=== PATIENT | female | born 1950 | race Caucasian/White ===

== ENCOUNTER 2017-11-28 13:23 | Outpatient (CLI) | payer MEDICARE, OTHER ==
--- NOTE | 2017-11-28 14:38 | MRI ---
MRI BRAIN WITHOUT CONTRAST: Date: 11/28/17 HISTORY: Memory loss. 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 No restricted diffusion is seen. No evidence of infarct, hemorrhag e, midline shift, or abnormal extra-axial fluid collections are noted. Ventricular size is appropriat e and the basilar cisterns are patent. There are mucus retention cysts versus polyps in the maxillary sinuses. IMPRESSION: 1. No acute process. 2. Mild chronic small vessel ischemic disease. POS: [facility]
== END 2017-11-28 13:24 | disposition home or self-care (01) ==
LOC: SCSMRI 13:23
PROVIDERS: ATTEND Family Medicine
DX: R41.3 Other amnesia (principal); G93.89 Other specified disorders of brain
CPT/HCPCS: 70551

== ENCOUNTER 2018-04-18 09:10 | Outpatient (CLI) | payer MEDICARE, BC | END 2018-04-18 09:11 | disposition home or self-care (01) | LOC: BICMAMMO 09:10 | PROVIDERS: ATTEND Family Medicine | DX: Z12.31 Encounter for screening mammogram for malignant neoplasm of breast (principal) | CPT/HCPCS: 77063; 77067 ==

== ENCOUNTER 2018-05-03 15:57 | Emergency (ER) | payer MEDICARE, BC ==
[2018-05-03] MEDS ORDERED: Adacel (T-DAP) 0.5 ML VIAL ONE (16:46)
--- NOTE | 2018-05-03 17:13 | RAD ---
RIGHT HAND THREE VIEW 05/03/18 HISTORY: Fall. COMPARISON: None. FINDINGS: Osteotomy and joint replacement of the index finger proximal interphalangeal joint. Cerclage wire and pins through the distal interphalangeal joint of the middle finger. No acute displaced fracture or m alalignment. IMPRESSION: Chronic findings. No acute abnormality. POS: [facility]
--- NOTE | 2018-05-03 17:16 | RAD ---
LEFT TIBIA AND FIBULA TWO VIEW 05/03/18 HISTORY: Trauma. COMPARISON: None. FINDINGS: No fracture or malalignment. Mild anterior soft tissue swelling. IMPRESSION: Soft tissue swelling without acute fracture or malalignment. POS: [facility]
--- NOTE | 2018-05-03 17:18 | CT ---
CT BRAIN WITHOUT CONTRAST 05/03/18 HISTORY: Trauma. Fall. COMPARISON: MRI of the brain 11/28/17. FINDINGS: No acute territorial infarct or hemorrhage. No midline shift or mass effect. Ventricular size and ext ra-axial CSF spaces are normal. Calvarium is intact. The paranasal sinuses and mastoids are clear. IMPRESSION: No acute intracranial abnormality. POS: [facility]
--- NOTE | 2018-05-03 17:46 | CT ---
CT FACE WITHOUT CONTRAST 05/03/18 HISTORY: Injury. Trauma. COMPARISON: None. FINDINGS: Mucous retention cyst right maxillary sinus. The lateral orbital dailey, medial orbital dailey, orbital floors, orbital roofs are intact. The nasal bones are without fracture. Pterygoid plates are intact. There is motion artifact to the mandibular rami angles bilaterally. No d isplaced mandibular fracture is appreciated. Globes are intact. No retrobulbar hematoma. IMPRESSION: No acute fracture of the face. POS: [facility]
== END 2018-05-03 17:20 | disposition home or self-care (01) ==
LOC: SCSER 15:57
DX: S00.83XA Contusion of other part of head, initial encounter (principal); F41.9 Anxiety disorder, unspecified; F32.9 Major depressive disorder, single episode, unspecified; W22.8XXA Striking against or struck by other objects, initial encounter
CPT/HCPCS: 70450; 70486; 90715

== ENCOUNTER 2018-11-21 07:36 | Outpatient (CLI) | payer MEDICARE, BC ==
--- NOTE | 2018-11-21 13:21 | PET ---
PET IMAGING FOR DEMENTIA: HISTORY: Alzheimer's disease. COMPARISON: None. TECHNIQUE: Patient was administered 9.4 mCi of [id number] for dementia imaging. FINDINGS: There is decreased FDG avidity involving bilateral parietal lobes, posterior cingulate gyrus, and lisandra ateral precuneus. Distribution is compatible with Alzheimer's disease. IMPRESSION: Distribution, compatible with Alzheimer's disease. POS: [facility]
== END 2018-11-21 07:37 | disposition home or self-care (01) ==
LOC: PET 07:36
PROVIDERS: ATTEND Nurse Practitioner Acute Care
DX: G30.9 Alzheimer's disease, unspecified (principal)
CPT/HCPCS: 78608; A9552

== ENCOUNTER 2019-02-08 16:49 | Observation (INO) | payer MEDICARE, BC ==
[2019-02-08 17:41] LABS: Band 2 % (5-11); Eosinophils 3 % (0-10); Hemoglobin 14.9 g/dL (12.0-16.0); Lymphocytes 18 % (21-51); MDiff Complete? YES; Mean Corpuscular HGB CONC 34.9 g/dL (32.0-36.0); Mean Corpuscular Hemoglobin 32.7 pg (27.0-31.0); Mean Corpuscular Volume 93.6 fL (78.0-98.0); Mean Platelet Volume 7.2 fL (7.4-10.4); Monocytes 8 % (0-10); Neutrophil 68 % (42-75); Platelet Count 281 thou/uL (130-400); Platelet Morphology Comment Appears Adequate; RBC Distribution Width 12.3 % (11.5-14.5); Reactive Lymphocytes 1 % (0-10); Red Blood Cell (RBC) Count 4.57 mill/uL (4.20-5.40); White Blood Cell (WBC) Count 6.8 thou/uL (4.8-10.8)
[2019-02-08 17:44] LABS: ALT (SGPT) 23 U/L (8-55); AST (SGOT) 20 U/L (5-34); Albumin 3.9 g/dL (3.4-4.8); Alkaline Phosphatase 66 U/L (40-150); Anion Gap 16 mmol/L (10-20); BUN (Urea Nitrogen) 12 mg/dL (9.8-20.1); Bilirubin, Total 0.3 mg/dL (0.2-1.2); Calc. Creatinine Clearance 0 mL/min (70-130); Calcium 9.4 mg/dL (7.8-10.44); Carbon Dioxide 19 mmol/L (23-31); Chloride 109 mmol/L (98-107); Estimated GFR-MDRD 73; Glucose 108 mg/dL (80-115); Potassium 3.9 mmol/L (3.5-5.1); Protein, Total 6.9 g/dL (6.0-8.3); Sodium 140 mmol/L (136-145)
[2019-02-08] MEDS ORDERED: Pantoprazole 40 MG VIAL ONE (18:09)
[2019-02-08 19:46] VITALS: BMI 30.7
[2019-02-08] MEDS ORDERED: Acetaminophen 325 MG TAB PO PRN (20:16)
[2019-02-08] MEDS ORDERED: Ondansetron PF 4 MG/2 ML Vial IVP PRN (20:16)
[2019-02-08] MEDS ORDERED: Ondansetron ODT 4 MG TAB PO PRN (20:16)
[2019-02-08] MEDS ORDERED: Acetaminophen 650 MG Suppository PR PRN (20:16)
[2019-02-08] MEDS ORDERED: Loratadine 10 MG TAB PO PRN (20:20)
[2019-02-08 20:42] LABS: Hemoglobin 15.2 g/dL (12.0-16.0)
[2019-02-08] MEDS ORDERED: Prevnar 13-Val Conj/PF 0.5 ML SYRINGE IM ONE (21:00)
--- NOTE | 2019-02-08 21:31 | HP ---
PRIMARY CARE DOCTOR: Dr. Christian. CODE STATUS: Full code. TIME OF EVALUATION: 8 p.m. CHIEF COMPLAINT FOR THIS PATIENT: "I have blood in the stool." HISTORY OF PRESENT ILLNESS: A 69-year-old female patient, past medical history of dementia, brought in by daughter. The patient came complaining of having blood in her stools. The patient reported 10-15 episodes of watery stool with bright red and some black stools also yesterday. She is on Eliquis for atrial fibrillation, last dose this morning, and also reported some tenesmus associated with defecation. Symptoms were mild to moderate. No clear triggers, no alleviating factors. REVIEW OF SYSTEMS: CONSTITUTIONAL: No fever, chills, or generalized weakness. RESPIRATORY: No cough, sputum production, or shortness of breath. CARDIOVASCULAR: No chest pain or palpitation. GASTROINTESTINAL: No nausea. No vomiting. The patient did have diarrhea with bloody stools and black stools. No abdominal pain. [employer] SALES CONSULTANT: No dizziness, headache, or feeling lightheaded. GENITOURINARY: No burning on urination. EXTREMITIES: No leg swelling. All other systems were reviewed and negative except for the findings mentioned above. PAST MEDICAL HISTORY: The patient has arthritis, left shoulder and neck stenosis. The patient has dementia. PAST SURGICAL HISTORY: Navel hernia, mesh and bladder sling, cataract surgery, surgical history of appendectomy, hysterectomy, right hand surgery. PSYCHIATRIC HISTORY: No history of suicidal ideation, no history of suicidal times. The patient has a history of anxiety. The patient has Alzheimer's. SOCIAL HISTORY: The patient drinks socially twice a month. The patient denies any drug use. The patient has no smoking history. KNOWN ALLERGIES: Iodine, shell fish derivatives. REPORTED MEDICATIONS: 1. Rivastigmine. 2. Lexapro. 3. Eliquis. 4. Donepezil. 5. Abilify. PHYSICAL EXAMINATION: VITAL SIGNS: On presentation, blood pressure 125/80 with heart rate 77, respiratory rate 16, temperature 98.2, pain 5, oxygen saturation was 96% on room air. GENERAL: The patient is alert, oriented, in no acute distress. HEENT: Eyes, normal conjunctivae. Moist oral mucosa. Anicteric. No JVD. RESPIRATORY: Bilateral air entry. No rales. No wheezes. Symmetric expansion. CARDIOVASCULAR: Normal rate, regular rhythm. No murmurs, no gallop, no edema. ABDOMEN: Soft. Normal bowel sounds. MUSCULOSKELETAL: Baseline range of motion and strength. SKIN: Warm, intact. No pallor. No rash. No redness. Capillary refill seems to be intact. NEURO: No evidence of any new focal weakness. Cranial nerves seem to be intact. PSYCH: The patient is in good mood. No anxiety. Optimal judgment. LABORATORY DATA: White count 6.8, hemoglobin 14.2, platelet count 281. Sodium 140, potassium 3.9, chloride 109, carbon dioxide 19, anion gap 16, BUN 12, creatinine 0.78, GFR 73, glucose 108, calcium 9.4, total bilirubin 0.3, AST 20, ALT 23, alkaline phosphatase 66. Serum total protein 6.9, albumin 3.9, globulin 3.0, albumin to globulin ratio is 1.3. ASSESSMENT AND PLAN: The patient will be placed in the hospital with follow medical problems. 1. Gastrointestinal bleeding. The patient was on chronic anticoagulation for atrial fibrillation, has been placed on hold for now. The patient has recent colonoscopy, was negative. The patient will be consulted with GI and we will keep n.p.o. in case GI wants to do an EGD in the morning. No history of NSAIDs. No history of cancer in the family. No history of peptic ulcer. No history of gastroesophageal reflux disease. 2. History of dementia. The patient will need supportive care as inpatient. 3. History of atrial fibrillation, rhythm is controlled. We will reconcile home medications. Monitor on tele. 4. Deep venous thrombosis prophylaxis. We will place the patient on SCDs. Job ID: [id number]
[2019-02-08] MEDS: Donepezil HCl 5 MG TAB PO SCH (22:16)
[2019-02-09 02:38] LABS: Hemoglobin 14.6 g/dL (12.0-16.0)
[2019-02-09 03:01] LABS: Anion Gap 14 mmol/L (10-20); BUN (Urea Nitrogen) 12 mg/dL (9.8-20.1); Calc. Creatinine Clearance 97 mL/min (70-130); Calcium 9.4 mg/dL (7.8-10.44); Carbon Dioxide 21 mmol/L (23-31); Chloride 109 mmol/L (98-107); Estimated GFR-MDRD 74; Glucose 81 mg/dL (80-115); Sodium 140 mmol/L (136-145)
[2019-02-09] MEDS: Aripiprazole 10 MG TAB PO SCH (08:16)
[2019-02-09] MEDS: Rivastigmine 1.5 MG CAP PO SCH ×2 (08:17→16:23)
[2019-02-09] MEDS: Escitalopram Oxalate 20 mg Tablet PO SCH (08:17)
--- NOTE | 2019-02-09 09:51 | PDOC.PN ---
- Subjective Encounter Start Date: 02/09/19 Encounter Start Time: 11:50 Subjective: Patient without further bloody stools. No more diarrhea this AM. No other -: complaints. - Objective Resuscitation Status - Order Detail: 02/08/19 20:16 Resuscitation Status Routine Resuscitation Status: FULL: Full Resuscitation MAR Reviewed: Yes Vital Signs & Weight: Vital Signs (12 hours) Temp Pulse Resp BP Pulse Ox 02/09/19 07:25 98.5 F 75 20 116/59 L 94 L 02/09/19 04:59 98.6 F 92 16 98/67 95 02/08/19 23:28 99.0 F 73 16 104/64 97 Weight Weight 191 lb 1.6 oz I&O: 02/08/19 02/09/19 02/10/19 06:59 06:59 06:59 Intake Total 240 Output Total 800 Balance -560 Result Diagrams: 02/09/19 08:07 02/09/19 02:24 Phys Exam - Physical Examination Constitutional: NAD HEENT: PERRLA, moist MMs no facial droop Respiratory: no wheezing, no rales, no rhonchi Cardiovascular: RRR, no significant murmur Gastrointestinal: soft, positive bowel sounds Musculoskeletal: no edema Neurological: non-focal, moves all 4 limbs Psychiatric: normal affect, A&O x 3 Dx/Plan (1) GI bleed Code(s): K92.2 - GASTROINTESTINAL HEMORRHAGE, UNSPECIFIED Status: Acute Comment: likely due to blood thinners, H/H normal and stable, no evidence of significant GI bleed at this time, continue to monitor, GI consulted (2) Atrial fibrillation Code(s): I48.91 - UNSPECIFIED ATRIAL FIBRILLATION Status: Chronic Qualifiers: Atrial fibrillation type: chronic Qualified Code(s): I48.2 - Chronic atrial fibrillation Comment: holding blood thinners for now (3) Dementia Code(s): F03.90 - UNSPECIFIED DEMENTIA WITHOUT BEHAVIORAL DISTURBANCE Status: Chronic - Plan cont current plan of care, out of bed/ambulate, DVT proph w/SCDs d/c when ok with GI * . - Discharge Day Encounter end time: 12:00
--- NOTE | 2019-02-09 15:15 | CON ---
DATE OF CONSULTATION: 02/09/2019 CHIEF COMPLAINT: Diarrhea and blood in the stool. HISTORY OF PRESENT ILLNESS: Ms. Bragg is a 69-year-old woman, who was admitted with blood in the stool and diarrhea. She has underlying dementia and the history is largely from her and from the chart. She reports that she started with diarrhea 2 or 3 days ago with several liquidy stools per day. Yesterday, the stool had drips of red blood on the toilet paper. She had a liquidy brown stool this morning that was viewed by the nurse. She has had no abdominal pain or fever with this. No nausea or vomiting. No weight loss. PAST MEDICAL HISTORY: 1. Dementia. 2. Arthritis. 3. She has a history of multiple colon polyps in the past and has had multiple colonoscopies over the years by Dr. Quigley. Her most recent colonoscopy was on 11/28/2018 with a small inflammatory polyp removed at that time. 4. Diverticulosis of the left colon. 5. Atrial fibrillation. PAST SURGICAL HISTORY: Umbilical hernia repair, bladder sling, cataract surgery, appendectomy, hysterectomy, hand surgery. HABITS: No tobacco or drugs. Occasional alcohol. ALLERGIES: IODINE. MEDICATIONS: Prior to admission, 1. Rivastigmine. 2. Lexapro. 3. Eliquis. 4. Donepezil. 5. Abilify. REVIEW OF SYSTEMS: Negative x10 systems reviewed, except as stated in the history of present illness. PHYSICAL EXAMINATION: VITAL SIGNS: Temperature 98.5, pulse 75, blood pressure 116/59. GENERAL: She is in no acute distress. She is awake and alert and appropriately responsive. HEENT: Her eyes have no scleral icterus. Oropharynx is clear without lesions. No cervical or supraclavicular lymphadenopathy. LUNGS: Clear to auscultation bilaterally. HEART: Regular rate and rhythm without murmur. ABDOMEN: Soft, nontender, and nondistended. Bowel sounds are present. EXTREMITIES: No lower extremity edema. NEUROLOGIC: Cranial nerves are grossly intact. LABORATORY DATA: White blood cell count is 6.8, hemoglobin is 15.0, platelets are 281. Creatinine 0.77, bilirubin 0.3, AST 20, ALT 23, alkaline phosphatase 66, albumin 3.9. IMPRESSION: 1. Acute diarrhea over the last few days with multiple liquidy brown stools per day with intermittent red blood small volume mixed with them as well. Her hemoglobin remained stable at 15, on Eliquis. Last dose of Eliquis was yesterday morning. Rule out infectious gastroenteritis. 2. Gastrointestinal bleed. She has drips of red blood from the rectum and on the toilet paper, but no large volume hematochezia or melena. This does not seem to be a significant GI bleed. Her hemoglobin is stable at 15. She just had colonoscopy in November 2018 and will not require a repeat colonoscopy at this time. There is no evidence of upper gastrointestinal bleed at this point. 3. History of atrial fibrillation, on Eliquis. RECOMMENDATIONS: 1. Obtain stool studies for C. diff culture, ova and parasite, lactoferrin. 2. Advance her diet. 3. If her diarrhea improves and if she does not show further signs of significant bleeding, she can likely restart her anticoagulation soon. We will recheck results of stool studies and her hemoglobin tomorrow morning. Job ID: [id number]
[2019-02-09] MEDS: Donepezil HCl 5 MG TAB PO SCH (20:52)
[2019-02-10 05:28] LABS: #Basophils 0.1 thou/uL (0.0-0.2); #Eosinphils 0.2 thou/uL (0.0-0.7); #Lymphocytes 1.5 thou/uL (1.20-3.40); #Monocytes 0.7 thou/uL (0.11-0.59); #Neutrophils 4.7 thou/uL (1.40-6.50); %Basophils 0.8 % (0.0-1.0); %Eosinophils 3.3 % (0.0-10.0); %Lymphocytes 21.3 % (21.0-51.0); %Monocytes 9.9 % (0.0-10.0); %Neutrophils 64.8 % (42.0-75.0); Hemoglobin 14.4 g/dL (12.0-16.0); Mean Corpuscular HGB CONC 34.1 g/dL (32.0-36.0); Mean Corpuscular Hemoglobin 33.3 pg (27.0-31.0); Mean Corpuscular Volume 97.7 fL (78.0-98.0); Mean Platelet Volume 6.6 fL (7.4-10.4); Platelet Count 249 thou/uL (130-400); RBC Distribution Width 12.4 % (11.5-14.5); White Blood Cell (WBC) Count 7.2 thou/uL (4.8-10.8)
[2019-02-10 05:54] LABS: Anion Gap 12 mmol/L (10-20); BUN (Urea Nitrogen) 10 mg/dL (9.8-20.1); Calc. Creatinine Clearance 99 mL/min (70-130); Calcium 9.3 mg/dL (7.8-10.44); Carbon Dioxide 21 mmol/L (23-31); Chloride 108 mmol/L (98-107); Estimated GFR-MDRD 80; Glucose 84 mg/dL (80-115); Potassium 3.9 mmol/L (3.5-5.1); Sodium 137 mmol/L (136-145)
--- NOTE | 2019-02-10 08:08 | PDOC.PN ---
- Subjective Encounter Start Date: 02/10/19 Encounter Start Time: 11:20 Subjective: Patient with no more diarrhea, no more bloody bowel movements, no abd -: pain or other symptoms. - Objective Resuscitation Status - Order Detail: 02/08/19 20:16 Resuscitation Status Routine Resuscitation Status: FULL: Full Resuscitation MAR Reviewed: Yes Vital Signs & Weight: Vital Signs (12 hours) Temp Pulse Resp BP Pulse Ox 02/10/19 04:49 98.5 F 72 16 105/62 94 L Weight Weight 186 lb 14.4 oz I&O: 02/09/19 02/10/19 02/11/19 06:59 06:59 06:59 Intake Total 240 1320 Output Total 800 1000 Balance -560 320 Result Diagrams: 02/10/19 05:04 02/10/19 05:04 Phys Exam - Physical Examination Constitutional: NAD HEENT: moist MMs Respiratory: no wheezing, no rales, no rhonchi, clear to auscultation bilateral Cardiovascular: RRR, no significant murmur Gastrointestinal: soft, non-tender, no distention, positive bowel sounds Neurological: non-focal Psychiatric: normal affect Dx/Plan (1) GI bleed Code(s): K92.2 - GASTROINTESTINAL HEMORRHAGE, UNSPECIFIED Status: Acute Comment: likely due to blood thinners, H/H normal and stable, no evidence of significant GI bleed at this time, can resume blood thinners and d/c home (2) Atrial fibrillation Code(s): I48.91 - UNSPECIFIED ATRIAL FIBRILLATION Status: Chronic Qualifiers: Atrial fibrillation type: chronic Qualified Code(s): I48.2 - Chronic atrial fibrillation Comment: resume blood thinners (3) Dementia Code(s): F03.90 - UNSPECIFIED DEMENTIA WITHOUT BEHAVIORAL DISTURBANCE Status: Chronic - Plan cont current plan of care, continue antibiotics d/c home * . - Discharge Day Encounter end time: 11:35
[2019-02-10] MEDS: Escitalopram Oxalate 20 mg Tablet PO SCH (08:45)
[2019-02-10] MEDS: Aripiprazole 10 MG TAB PO SCH (08:45)
[2019-02-10] MEDS: Rivastigmine 1.5 MG CAP PO SCH (08:45)
[2019-02-10] MEDS ORDERED: Apixaban 5 MG TAB PO SCH (09:00)
[2019-02-10 12:26] VITALS: BP 99/64; TEMP 98.9
--- NOTE | 2019-02-10 22:40 | DIS ---
DATE OF ADMISSION: 02/08/2019 DATE OF DISCHARGE: 02/10/2019 PRIMARY CARE PHYSICIAN: Dr. Christian. REASON FOR ADMISSION: Bloody bowel movements. DIAGNOSES AT DISCHARGE: 1. Acute diarrhea, likely viral, resolved. 2. Lower GI bleed, resolved. 3. Atrial fibrillation, on chronic anticoagulation. 4. Dementia. PROCEDURES: None. CONSULTATIONS: Gastroenterology, Dr. Vega. SUMMARY OF HOSPITAL COURSE: This is a 69-year-old white female with a history of dementia, brought in by her daughter for several days of watery brown stools with mixed in blood, also some possible black color to it as well. The patient is on Eliquis for atrial fibrillation. She did have some tenesmus associated with defecation initially. The patient was admitted to the hospital and observed. She had normal hemoglobin and hematocrit, and this did not drop during hospitalization. She had no further diarrhea or blood in her bowel movements during the hospitalization. Her Eliquis was held while she was in the hospital. Dr. Vega was consulted. He recommended stool studies which were negative for Clostridium difficile, negative for lactoferrin, negative for Campylobacter or shiga toxin. No evidence of bacterial infection at this point. The patient was doing well on the day of discharge and completely asymptomatic, is being discharged home. DISCHARGE MANAGEMENT: Discharged home. FOLLOWUP: Follow up with Dr. Christian in the next 2-3 weeks. ACTIVITY: As tolerated. DIET: Healthy heart diet. MEDICATIONS: Resume all home medications. 1. Eliquis 5 mg twice a day. 2. Abilify 2.5 mg daily. 3. Aricept 5 mg at night. 4. Lexapro 20 mg daily. 5. Claritin 10 mg daily. 6. Rivastigmine 3 mg twice a day. Job ID: [id number]
== END 2019-02-10 13:15 | disposition home or self-care (01) ==
LOC: SCSER 16:49 → 2SW 19:15
PROVIDERS: ADMIT Family Medicine; ATTEND Family Medicine
DX: K92.2 Gastrointestinal hemorrhage, unspecified (principal); R19.7 Diarrhea, unspecified; I48.91 Unspecified atrial fibrillation; G30.9 Alzheimer's disease, unspecified; F02.80 Dementia in other diseases classified elsewhere, unspecified severity, without behavioral disturbance, psychotic disturbance, mood disturbance, and anxiety; M19.012 Primary osteoarthritis, left shoulder; F32.9 Major depressive disorder, single episode, unspecified; F41.9 Anxiety disorder, unspecified; Z91.041 Radiographic dye allergy status; Z91.013 Allergy to seafood; Z98.890 Other specified postprocedural states; Z79.01 Long term (current) use of anticoagulants; Z79.899 Other long term (current) drug therapy
CPT/HCPCS: 80048 ×2; 80053; 83630; 85014 ×3; 85018 ×3; 85025 ×2; 86850; 86900; 86901; 87045; 87046; 87177; 87324; 87449 ×2; 87899 ×2; 90670; 96374; 99285; G0009; G0378; 36415; 90471; C9113

== ENCOUNTER 2019-02-21 15:11 | Emergency (ER) | payer MEDICARE, BC ==
[2019-02-21 15:58] LABS: #Basophils 0.1 thou/uL (0.0-0.2); #Eosinphils 0.1 thou/uL (0.0-0.7); #Lymphocytes 1.8 thou/uL (1.20-3.40); #Monocytes 0.5 thou/uL (0.11-0.59); #Neutrophils 5.5 thou/uL (1.40-6.50); %Eosinophils 1.2 % (0.0-10.0); %Monocytes 5.7 % (0.0-10.0); Hemoglobin 16.5 g/dL (12.0-16.0); Mean Corpuscular HGB CONC 32.9 g/dL (32.0-36.0); Mean Corpuscular Hemoglobin 31.8 pg (27.0-31.0); Mean Corpuscular Volume 96.4 fL (78.0-98.0); Platelet Count 305 thou/uL (130-400); RBC Distribution Width 12.3 % (11.5-14.5); Red Blood Cell (RBC) Count 5.19 mill/uL (4.20-5.40)
[2019-02-21 16:06] LABS: INR-International Normal Ratio 1.1; PTT 30.6 SEC (22.9-36.1); Prothrombin Time 13.7 SEC (12.0-14.7)
[2019-02-21 16:22] LABS: ALT (SGPT) 21 U/L (8-55); AST (SGOT) 20 U/L (5-34); Albumin 4.1 g/dL (3.4-4.8); Alkaline Phosphatase 66 U/L (40-150); Anion Gap 17 mmol/L (10-20); BUN (Urea Nitrogen) 19 mg/dL (9.8-20.1); Bilirubin, Total 0.4 mg/dL (0.2-1.2); CK (CPK) 51 U/L (29-168); Calc. Creatinine Clearance 0 mL/min (70-130); Calcium 9.9 mg/dL (7.8-10.44); Carbon Dioxide 19 mmol/L (23-31); Chloride 107 mmol/L (98-107); Estimated GFR-MDRD 65; Globulin 3.2 g/dL (2.4-3.5); Glucose 128 mg/dL (80-115); Potassium 3.8 mmol/L (3.5-5.1); Protein, Total 7.3 g/dL (6.0-8.3); Sodium 139 mmol/L (136-145)
--- NOTE | 2019-02-21 18:18 | CT ---
Exam: Head CT without contrast HISTORY: Pain. Injury. Fall. COMPARISON: 05/03/2018 FINDINGS: Hemorrhage: No intraparenchymal hemorrhage or extra-axial hematoma. Brain parenchyma: Cortical palacios-white matter differentiation is preserved. No mass effect or midline shift. Basilar cisterns are patent.Chronic small vessel ischemic changes white matter are minimal and probably periventricular in distribution. Stable left-sided choroidal fissural cyst versus an enl arged Virchow-Sanjeev space. Ventricular system: Ventricles and sulci are patent and symmetric. Calvarium: Intact. Sinuses and mastoid air cells: Adequate aeration. IMPRESSION: No acute intracranial process.
== END 2019-02-21 18:46 | disposition home or self-care (01) ==
LOC: ERS 15:11
DX: S09.90XA Unspecified injury of head, initial encounter (principal); R42 Dizziness and giddiness; G30.9 Alzheimer's disease, unspecified; F41.9 Anxiety disorder, unspecified; F32.9 Major depressive disorder, single episode, unspecified; Z79.01 Long term (current) use of anticoagulants; Z79.899 Other long term (current) drug therapy; W01.0XXA Fall on same level from slipping, tripping and stumbling without subsequent striking against object, initial encounter
CPT/HCPCS: 70450; 80053; 82550; 84484; 85025; 85610; 85730; 93005; 94760

== ENCOUNTER 2019-02-21 22:41 | Inpatient (IN) | payer MEDICARE, BC ==
[2019-02-22 00:16] LABS: #Basophils 0.1 thou/uL (0.0-0.2); #Eosinphils 0.1 thou/uL (0.0-0.7); #Lymphocytes 1.4 thou/uL (1.20-3.40); #Monocytes 0.6 thou/uL (0.11-0.59); #Neutrophils 7.3 thou/uL (1.40-6.50); %Basophils 1.1 % (0.0-1.0); %Lymphocytes 14.4 % (21.0-51.0); %Monocytes 6.4 % (0.0-10.0); %Neutrophils 77.1 % (42.0-75.0); Hemoglobin 14.7 g/dL (12.0-16.0); Mean Corpuscular HGB CONC 32.5 g/dL (32.0-36.0); Mean Corpuscular Hemoglobin 31.8 pg (27.0-31.0); Mean Corpuscular Volume 97.8 fL (78.0-98.0); Platelet Count 288 thou/uL (130-400); RBC Distribution Width 12.3 % (11.5-14.5); Red Blood Cell (RBC) Count 4.61 mill/uL (4.20-5.40); White Blood Cell (WBC) Count 9.5 thou/uL (4.8-10.8)
[2019-02-22 00:27] LABS: ALT (SGPT) 17 U/L (8-55); AST (SGOT) 13 U/L (5-34); Albumin 3.6 g/dL (3.4-4.8); Alkaline Phosphatase 59 U/L (40-150); Anion Gap 15 mmol/L (10-20); BUN (Urea Nitrogen) 18 mg/dL (9.8-20.1); Bilirubin, Total 0.3 mg/dL (0.2-1.2); Calc. Creatinine Clearance 0 mL/min (70-130); Calcium 8.8 mg/dL (7.8-10.44); Carbon Dioxide 20 mmol/L (23-31); Chloride 108 mmol/L (98-107); Estimated GFR-MDRD 65; Globulin 2.8 g/dL (2.4-3.5); Glucose 129 mg/dL (80-115); Potassium 3.7 mmol/L (3.5-5.1); Protein, Total 6.4 g/dL (6.0-8.3); Sodium 139 mmol/L (136-145)
[2019-02-22 01:26] LABS: Bacteria/HPF 4+ HPF (None Seen); Bilirubin Negative (Negative); Blood, Urine Negative (Negative); Clarity Clear (Clear); Glucose, Urine (Dipstick) Normal (Negative); Leukocyte 250 Leu/uL (Negative); Nitrite 2+ (Negative); Protein, Urine (Dipstick) Negative (Neg-Trace); RBC/HPF 0-3 HPF (0-3); Squamous Epithelial 0-3 HPF (0-3); Urobilinogen Normal mg/dL (Less than 2); WBC/HPF Greater than 50 HPF (0-3)
[2019-02-22] MEDS ORDERED: cefTRIAXone\\ROCEPHIN 2 GM VIAL ONE (02:53)
[2019-02-22 04:34] VITALS: BMI 30.4
[2019-02-22] MEDS ORDERED: Acetaminophen 325 MG TAB PO PRN (04:36)
[2019-02-22] MEDS ORDERED: Ondansetron PF 4 MG/2 ML Vial IVP PRN (04:36)
[2019-02-22] MEDS ORDERED: Ondansetron ODT 4 MG TAB SL PRN (04:36)
[2019-02-22 05:36] LABS: Troponin I Less than 0.010 ng/mL (< 0.028)
[2019-02-22] MEDS ORDERED: Prevnar 13-Val Conj/PF 0.5 ML SYRINGE IM ONE (06:15)
[2019-02-22 08:34] LABS: Troponin I Less than 0.010 ng/mL (< 0.028)
--- NOTE | 2019-02-22 08:38 | CT ---
PRELIMINARY REPORT/[facility]/EMERGENCY AFTER HOURS PROCEDURE: EXAM: CT Head Without Contrast EXAM DATE/TIME: 02/22/2019 1:52 AM CLINICAL HISTORY: 69 years old, female; Alteration of consciousness; Transient alteration of awareness; Patient HX: 69 y/o F presents to ED C/O unresolved and worsening dizziness, described as vertigo. PT was evaluated in ED earlier today S/P fall with C/O dizziness. She was discharged home with meclizine for symptom mediation with all imaging studies, including brain CT, nad. Per family, PT felt better a t time of discharge. After returning home and eating dinner, PT suddenly reported to family that dizziness had returned and was worse than prior. TECHNIQUE: Imaging protocol: Axial computed tomography images of the head without contrast. COMPARISON: No relevant prior studies available. FINDINGS: Brain: Diffuse cerebral age related volume loss and patchy low attenuation in the white matter compatible with chronic small vessel ischemic disease. No midline shift, mass, fluid collection, or evidence of hemorrhage. Left anterior perforating substance enlarged perivascular space. Ventricles: Ventricular enlargement proportional to volume loss. Bones/joints: Unremarkable. No acute fracture. Sinuses: Visualized sinuses are unremarkable. No fluid levels. Mastoid air cells: Visualized mastoid air cells are well aerated. No mastoid effusion. Soft tissues: Unremarkable. IMPRESSION: Age related changes, no acute intracranial abnormality. Thank you for allowing us to participate in the care of your patient. Dictated and Authenticated by: Marco Antonio Sykes MD 02/22/2019 2:35 AM Central Time ([place] & [place]) FINAL REPORT by Dr. Murray EMERGENCY AFTER-HOURS STUDY: CT BRAIN NONCONTRAST: DATE: 02/22/2019 HISTORY: A 69-year-old female with dizziness and vertigo. FINDINGS: There is no evidence of acute intra-axial or extra-axial hemorrhage. There is no midline shift or any other mass effect. There is no extra-axial fluid collection. There is no evidence of obstructive hydrocephalus. Calvarium is intact. There is diffuse brain parenchymal volume loss. There is no inter luis daniel change compared to yesterday's CT, 02/21/2019. Agree with preliminary report by [facility]. IMPRESSION: 1. No acute intracranial findings. 2. Diffuse involutional changes. Transcribed Date/Time: 02/22/2019 9:57 AM
--- NOTE | 2019-02-22 08:51 | RAD ---
XR Chest 1 View Portable History: Chest pain Comparison: Chest radiograph 2013 Findings: Heart size mildly enlarged. The pulmonary arteries are enlarged. No pneumothorax. No effusi on. Mild lung hypoinflation. Degenerative changes of both shoulders. Impression: Cardiomegaly and pulmonary arterial hypertension.
--- NOTE | 2019-02-22 11:58 | ULT ---
US Carotid Doppler STANDARD History: Syncope Comparison: None. Findings: Real-time grayscale, color, and spectral analysis of the extracranial carotid and vertebral arteries was performed. Antegrade flow both vertebral arteries. No elevated peak systolic velocities within the internal ponce tid arteries. Impression: No hemodynamically significant stenosis.
[2019-02-22] MEDS: Rivastigmine 1.5 MG CAP PO SCH (17:27)
--- NOTE | 2019-02-22 18:24 | HP ---
CHIEF COMPLAINT: Dizziness. HISTORY OF PRESENT ILLNESS: The patient is a 69-year-old female with a history of dementia and arthritis and also AFib, who presents to the hospital with complaints of dizziness x1 day. The patient stated that she woke up yesterday morning, felt very unsteady, described the room was spinning, and when she stood up, she tripped over a carpet that was on the floor and fell, but she did not hit her head. The patient denies losing any consciousness. She denies any fevers or chills, any nausea, vomiting or abdominal pain. The patient states that she has been having on and off diarrhea; however, it is not consistent and sometimes is associated with certain types of food. She denies any blood in her urine or in her stool. PAST MEDICAL HISTORY: She has a history of arthritis, left shoulder and neck stenosis, and also history of dementia and AFib. PAST SURGICAL HISTORY: She has had a navel hernia. She has had a mesh with a bladder sling, cataract surgery, surgical hysterectomy, appendectomy, hysterectomy, and right hand surgery. SOCIAL HISTORY: The patient drinks socially twice a month. The patient denies any drug use. The patient has no smoking history. ALLERGIES: SHE IS ALLERGIC TO IODINE AND SHELLFISH. MEDICATIONS: She is on, 1. Eliquis 5 mg b.i.d. 2. Donepezil. 3. Abilify. 4. Lexapro. 5. Rivastigmine. PHYSICAL EXAMINATION: VITAL SIGNS: Are as of the following; temperature of 98.8, heart rate of 67, respirations of 18, 96% on room air, and blood pressure of 128/77. GENERAL: She is awake, alert, and oriented x3. Does not appear in distress. CV: S1 and S2 present. No murmurs, rubs or gallops. ABDOMEN: Soft and nontender. Bowel sounds are present x2. LUNGS: Clear to auscultation. No rhonchi or wheezes noted. HEENT: Pupils are equal and reactive to light. NEUROVASCULAR: No focal deficits noted. SKIN: No cuts, lesions or bruises noted. Also, did orthos on her, which were negative. LABORATORY DATA: WBCs of 9.5, hemoglobin of 14.7, hematocrit of 45.1, and her platelets were 288. Chemistry; sodium 139, potassium of 3.7, BUN of 18, and creatinine 0.87. Her urine did indicate some wbc's and leukocyte esterase. She did have a CT head and chest x-ray. The CT head indicated no acute abnormalities and her chest x-ray indicated cardiomegaly and pulmonary arterial hypertension. ASSESSMENT AND PLAN: The patient is a very pleasant 69-year-old female, who presents to the hospital for dizziness. 1. Presyncope, most likely secondary to vertigo. The patient's symptoms that she describes are very close to vertigo. She stated the room was spinning. However, given her age, I will rule out cardiac issues. I will get an echocardiogram and carotid Dopplers. As I mentioned, her orthostatics were negative. She is not on any recent medications. She is not anemic. I will start her on some meclizine. She does possibly could have a UTI. I will start her on some prophylactic antibiotics and wait for the culture, and the patient states that she has also been having some loose stools. If she does, we will check stool for leukocyte esterase, and I will also check a TSH on her. 2. History of atrial fibrillation, currently controlled. Continue her home medications and her Eliquis. 3. History of dementia. We will continue her home medications. 4. Deep venous thrombosis prophylaxis. The patient is already on Eliquis. Thank you very much. Job ID: [id number]
[2019-02-22] MEDS: Apixaban 5 MG TAB PO SCH (19:55)
[2019-02-23] MEDS ORDERED: cefTRIAXone\\ROCEPHIN 1 GM in Sodium Chloride 0.9% 100 ML IVPB SCH (03:00)
[2019-02-23] MEDS: Escitalopram Oxalate 20 mg Tablet PO SCH (09:18)
[2019-02-23] MEDS: Rivastigmine 1.5 MG CAP PO SCH ×2 (09:19→17:12)
[2019-02-23] MEDS: Aripiprazole 2 MG TAB PO SCH (09:19)
[2019-02-23] MEDS: Apixaban 5 MG TAB PO SCH ×2 (09:19→21:01)
[2019-02-23] MEDS: Cefuroxime Axetil 250 MG TAB PO SCH ×2 (09:20→21:01)
[2019-02-23] MEDS ORDERED: Meclizine HCl 12.5 MG TAB PO SCH ×2 (10:25→10:45)
--- NOTE | 2019-02-23 13:53 | PDOC.PN ---
- Subjective Encounter Start Date: 02/23/19 Encounter Start Time: 10:15 Subjective: pt up in bed does complains of vertigo - Objective Vital Signs & Weight: Vital Signs (12 hours) Temp Pulse Resp BP BP BP Pulse Ox 02/23/19 10:15 105/66 118/74 02/23/19 07:41 97 02/23/19 03:35 98.5 F 76 18 108/71 95 Weight Weight 194 lb 6.4 oz Result Diagrams: 02/21/19 23:59 02/21/19 23:59 Phys Exam - Physical Examination Neck: no nodes, no JVD, supple, full ROM Respiratory: no wheezing, no rales, no rhonchi, wheezing present, clear to auscultation bilateral Cardiovascular: RRR, no significant murmur, no rub, gallop, irregular Gastrointestinal: soft, non-tender, no distention, positive bowel sounds Musculoskeletal: no edema, pulses present, edema present Dx/Plan (1) Pre-syncope Status: Acute (2) Atrial fibrillation Code(s): I48.91 - UNSPECIFIED ATRIAL FIBRILLATION Status: Chronic Qualifiers: Comment: resume blood thinners (3) Dementia Code(s): F03.90 - UNSPECIFIED DEMENTIA WITHOUT BEHAVIORAL DISTURBANCE Status: Chronic - Plan will get an MRI brain, carotid doppler is negative -: echo is pending. will get PT to see pt. Her stool studies are negative. * . Review of Systems - Review of Systems Respiratory: negative: Cough, Dry, Shortness of Breath, Hemoptysis, SOB with Excertion, Pleuritic Pain, Sputum, Wheezing Cardiovascular: negative: chest pain, palpitations, orthopnea, paroxysmal nocturnal dyspnea, edema, light headedness, other - Medications/Allergies Allergies/Adverse Reactions: Allergies Allergy/AdvReac Type Severity Reaction Status Date / Time Iodine and Iodide Containing Allergy Hives Verified 02/08/19 19:58 Produc shellfish derived Allergy Hives Verified 02/08/19 19:58 Medications: Current Medications Acetaminophen (Tylenol) 650 mg PO Q4H PRN PRN Reason: Headache/Fever or Pain Stop: 02/23/19 14:58 Apixaban (Eliquis) 5 mg PO BID [facility] Last Admin: 02/23/19 09:19 Dose: 5 mg Aripiprazole (Abilify) 2.5 mg PO DAILY [facility] Last Admin: 02/23/19 09:19 Dose: 2.5 mg Cefuroxime Axetil (Ceftin) 250 mg PO Q12HR [facility] Last Admin: 02/23/19 09:20 Dose: 250 mg Escitalopram Oxalate (Lexapro) 20 mg PO DAILY [facility] Last Admin: 02/23/19 09:18 Dose: 20 mg Meclizine HCl (Antivert) 12.5 mg PO BID [facility] Ondansetron HCl (Zofran) 4 mg IVP Q6H PRN PRN Reason: Nausea/Vomiting Stop: 02/23/19 14:58 Ondansetron HCl (Zofran Odt) 4 mg SL Q6H PRN PRN Reason: Nausea/Vomiting Stop: 02/23/19 14:58 Rivastigmine (Exelon) 3 mg PO BID[facility] Last Admin: 02/23/19 09:19 Dose: 3 mg Sodium Chloride (Flush - Normal Saline) 10 ml IVF Q12HR [facility] Sodium Chloride (Flush - Normal Saline) 10 ml IVF PRN PRN PRN Reason: Saline Flush
[2019-02-23] MEDS ORDERED: Loperamide HCl 2 MG CAP PO PRN (15:01)
--- NOTE | 2019-02-23 16:13 | MRI ---
EXAM: Brain MRI Without contrast: HISTORY: Dizziness, altered mental status COMPARISON: 11/28/2017 FINDINGS: Multiplanar multisequence MRI examination of the brain is performed. The ventricles are within normal limits of size shape and position. No mass or midline shift. No evidence for intra or extra-axial hemorrhage. No evidence for abnormal restricted diffusion. No evidence for acute infarct. Normal-appearing flow voids are noted. The extracranial soft tissues and calvarial marrow signal appear within normal limits. Visualized sinuses and mastoids are unremarkable. Mild stable chronic white matter ischemic change. IMPRESSION: No significant acute intracranial process. No mass or bleed. No acute infarct.
[2019-02-23] MEDS: Meclizine HCl 12.5 MG TAB PO SCH (21:01)
[2019-02-24] MEDS: Aripiprazole 2 MG TAB PO SCH (08:28)
[2019-02-24] MEDS: Escitalopram Oxalate 20 mg Tablet PO SCH (08:29)
[2019-02-24] MEDS: Cefuroxime Axetil 250 MG TAB PO SCH ×2 (08:29→19:56)
[2019-02-24] MEDS: Apixaban 5 MG TAB PO SCH ×2 (08:29→19:56)
[2019-02-24] MEDS: Meclizine HCl 12.5 MG TAB PO SCH ×2 (08:29→19:56)
[2019-02-24] MEDS: Rivastigmine 1.5 MG CAP PO SCH ×2 (09:09→17:58)
[2019-02-24] MEDS ORDERED: Haloperidol Lactate 5 MG/ML VIAL IM SCH (14:00)
[2019-02-24] MEDS ORDERED: Haloperidol Lactate 5 MG/ML VIAL ONE (14:03)
[2019-02-24] MEDS ORDERED: Ziprasidone 20 MG VIAL IM SCH (15:15)
--- NOTE | 2019-02-24 20:35 | PDOC.PN ---
- Subjective Encounter Start Date: 02/24/19 Encounter Start Time: 09:45 Subjective: pt up in bed no complains, updated pt's daughter - Objective Vital Signs & Weight: Vital Signs (12 hours) Temp Pulse Pulse Pulse Resp Resp Resp 02/24/19 16:00 98.2 F 68 18 02/24/19 13:47 67 68 20 20 02/24/19 12:00 98.1 F 70 18 BP BP BP Pulse Ox Pulse Ox 02/24/19 16:00 110/69 96 02/24/19 13:47 122/70 113/60 94 L 02/24/19 12:00 112/72 95 Weight Weight 193 lb 3.2 oz I&O: 02/23/19 02/24/19 02/25/19 06:59 06:59 06:59 Intake Total 840 Output Total 1250 Balance -410 Result Diagrams: 02/21/19 23:59 02/21/19 23:59 Additional Labs: Accuchecks 02/24/19 13:53 POC Glucose 138 H Phys Exam - Physical Examination Neck: no nodes, no JVD, supple, full ROM Respiratory: no wheezing, no rales, no rhonchi, wheezing present, clear to auscultation bilateral Cardiovascular: RRR, no significant murmur, no rub, gallop, irregular Gastrointestinal: soft, non-tender, no distention, positive bowel sounds Musculoskeletal: no edema, pulses present, edema present Dx/Plan (1) Pre-syncope Status: Acute (2) Atrial fibrillation Code(s): I48.91 - UNSPECIFIED ATRIAL FIBRILLATION Status: Chronic Qualifiers: Comment: resume blood thinners (3) Dementia Code(s): F03.90 - UNSPECIFIED DEMENTIA WITHOUT BEHAVIORAL DISTURBANCE Status: Chronic - Plan mri negative, echo pending- she can get it done outpatient -: she has vertigo, antivert has helped her. she has been getting up -: without any issues. will discharge her today * . Review of Systems - Review of Systems Respiratory: negative: Cough, Dry, Shortness of Breath, Hemoptysis, SOB with Excertion, Pleuritic Pain, Sputum, Wheezing Cardiovascular: negative: chest pain, palpitations, orthopnea, paroxysmal nocturnal dyspnea, edema, light headedness, other Gastrointestinal: negative: Nausea, Vomiting, Abdominal Pain, Diarrhea, Constipation, Melena, Hematochezia, Other - Medications/Allergies Allergies/Adverse Reactions: Allergies Allergy/AdvReac Type Severity Reaction Status Date / Time Iodine and Iodide Containing Allergy Hives Verified 02/08/19 19:58 Produc shellfish derived Allergy Hives Verified 02/08/19 19:58 Medications: Current Medications Apixaban (Eliquis) 5 mg PO BID [facility] Last Admin: 02/24/19 19:56 Dose: 5 mg Aripiprazole (Abilify) 2.5 mg PO DAILY [facility] Last Admin: 02/24/19 08:28 Dose: 2.5 mg Cefuroxime Axetil (Ceftin) 250 mg PO Q12HR [facility] Last Admin: 02/24/19 19:56 Dose: 250 mg Escitalopram Oxalate (Lexapro) 20 mg PO DAILY [facility] Last Admin: 02/24/19 08:29 Dose: 20 mg Loperamide HCl (Imodium) 2 mg PO Q4H PRN PRN Reason: Diarrhea/Loose Stools Last Admin: 02/23/19 15:40 Dose: 2 mg Meclizine HCl (Antivert) 12.5 mg PO BID [facility] Last Admin: 02/24/19 19:56 Dose: 12.5 mg Rivastigmine (Exelon) 3 mg PO BID[facility] Last Admin: 02/24/19 17:58 Dose: 3 mg Sodium Chloride (Flush - Normal Saline) 10 ml IVF Q12HR [facility] Last Admin: 02/24/19 19:56 Dose: 10 ml Sodium Chloride (Flush - Normal Saline) 10 ml IVF PRN PRN PRN Reason: Saline Flush
--- NOTE | 2019-02-24 20:36 | PDOC.EVN ---
Event Note - Event Note Event Note: called by nursing staff, pt was very agitated and yelling. she was given geodon. vitals were normal. lorrie le was called. when i went by to see her she was talking on the phone ordering her food. updated her daughter at bedside. will observe her tonight and discharge her in am.
--- NOTE | 2019-02-25 07:57 | PQF ---
KRISTI POSADA FAUSTINO IBARRA [id number] CLINICAL DOCUMENTATION IMPROVEMENT CLARIFICATION FORM: ICD-10 Updated PLEASE DO AN ADDENDUM TO THE PROGRESS NOTE WITH ANY DOCUMENTATION UPDATES OR ADDITIONS AND CARRY THROUGH TO DC SUMMARY. THANK YOU. DATE: 02/25 ATTN: DR. FAUSTINO THOMSON Please exercise your independent, professional judgment in responding to the clarification form. Clinical indicators are provided on the bottom of this form for your review. Please check appropriate box(s): [ x] UTI [ ] Contaminated urine specimen without UTI [ ] Other diagnosis [ ] Unable to determine In addition, please specify: Present on Admission (POA): [ x ] Yes [ ] No [ ] Unable to determine For continuity of documentation, please document condition throughout progress notes and discharge summary. Thank You. CLINICAL INDICATORS - SIGNS / SYMPTOMS / LABS ER PHYSICIAN DOCUMENTATION 02/22: ACUTE CYSTITIS H&P DOCUMENTATION 02/22 (ALIX): LAB DATA: ...HER URINE DID INDICATE SOME WBC' S & LEUKOCYTE ESTERASE. ASSESSMENT/PLAN: 1) PRESYNCOPE, MOST LIKELY 2/2 VERTIGO. ...SHE POSSIBLY COULD HAVE A UTI. I WILL START HER ON PROPHYLACTIC ANTIBIOTICS & WAIT FOR THE CULTURE. URINALYSIS (02/22): 2+ NITRITE, 250 A LEUKOCYTE ESTERASE, WBC >50 A, 4+ BACTERIA URINE CULTURE (02/22): E COLI RISKS: ABNORMAL URINALYSIS ALZHEIMER DEMENTIA AMS TREATMENT: IV ANTIBIOTIC (ROCEPHIN 02/22 - ) PO ANTIBIOTIC (CEFTIN 02/23 - PRESENT) IVF (1L NS IN ER) THANK YOU! Radha (This form is maintained as a part of the permanent medical record) 2014 [employer]. All Rights Reserved Radha King RN, BSN [email or web address] Office: [phone] [facility]
[2019-02-25 07:58] VITALS: BP 91/51; TEMP 97.9
[2019-02-25] MEDS: Aripiprazole 2 MG TAB PO SCH (09:13)
[2019-02-25] MEDS: Cefuroxime Axetil 250 MG TAB PO SCH (09:14)
[2019-02-25] MEDS: Rivastigmine 1.5 MG CAP PO SCH (09:14)
[2019-02-25] MEDS: Escitalopram Oxalate 20 mg Tablet PO SCH (09:14)
[2019-02-25] MEDS: Apixaban 5 MG TAB PO SCH (09:14)
[2019-02-25] MEDS: Meclizine HCl 12.5 MG TAB PO SCH (09:14)
[2019-02-25 09:27] LABS: #Basophils 0.1 thou/uL (0.0-0.2); #Eosinphils 0.3 thou/uL (0.0-0.7); #Lymphocytes 2.1 thou/uL (1.20-3.40); #Monocytes 0.6 thou/uL (0.11-0.59); #Neutrophils 5.5 thou/uL (1.40-6.50); %Eosinophils 3.3 % (0.0-10.0); %Lymphocytes 24.9 % (21.0-51.0); %Monocytes 6.8 % (0.0-10.0); Mean Corpuscular HGB CONC 32.4 g/dL (32.0-36.0); Mean Corpuscular Hemoglobin 31.7 pg (27.0-31.0); Mean Corpuscular Volume 97.7 fL (78.0-98.0); Platelet Count 282 thou/uL (130-400); RBC Distribution Width 12.4 % (11.5-14.5); Red Blood Cell (RBC) Count 5.04 mill/uL (4.20-5.40); White Blood Cell (WBC) Count 8.6 thou/uL (4.8-10.8)
[2019-02-25 09:49] LABS: Anion Gap 15 mmol/L (10-20); BUN (Urea Nitrogen) 13 mg/dL (9.8-20.1); Calc. Creatinine Clearance 86 mL/min (70-130); Calcium 9.9 mg/dL (7.8-10.44); Carbon Dioxide 22 mmol/L (23-31); Chloride 106 mmol/L (98-107); Estimated GFR-MDRD 66; Glucose 120 mg/dL (80-115); Potassium 4.1 mmol/L (3.5-5.1); Sodium 139 mmol/L (136-145)
--- NOTE | 2019-02-25 23:32 | DIS ---
DATE OF ADMISSION: 02/22/2019 DATE OF DISCHARGE: 02/25/2019 DISCHARGE DIAGNOSES: 1. Presyncope. 2. Atrial fibrillation. 3. Dementia. 4. Urinary tract infection. HOSPITAL COURSE: The patient is a 69-year-old female with a history of dementia who presented to the hospital with presyncope. Please refer to my H and P for further details. The patient described it as the room spinning experience. At this time, she did undergo a carotid Doppler which was negative. She also had a brain MRI, which did not indicate any acute abnormalities. She did undergo an echocardiogram which indicated an EF of 55% to 60% with a structurally normal mitral valve. No evidence of significant mitral regurgitation. Initially, the patient was discharged on 02/24, however she became very anxious and very confused and at this time, she required some medication to calm her down. The patient was observed overnight and she did not have any more symptoms and she was then discharged home. I did update the patient's daughter, Evi who lives with the patient. HOME MEDICATIONS: Home medications will be as of the followin. Xanax 0.25 b.i.d. p.r.n. 2. Ceftin 250 q.12 hours. 3. Antivert 12.5 b.i.d. p.r.n. 4. Florastor 250 mg daily. 5. Rivastigmine 3 mg p.o. b.i.d. 6. Eliquis 5 mg b.i.d. 7. Abilify 2.5 daily. 8. Lexapro 20 mg p.o. daily. PHYSICAL EXAMINATION: VITAL SIGNS: Temperature 97.9, pulse 70, respirations 18, 96% on room air, blood pressure 106/67. GENERAL: She is awake, alert, and oriented x3. Does not appear in distress. CV: S1 and S2 present. No murmurs, rubs, or gallops. ABDOMEN: Soft and nontender. Bowel sounds are present x2. EXTREMITIES: No edema. LABORATORY DATA: Her troponins x3 were negative. FOLLOWUP: She will follow up with her primary care doctor. Job ID: [id number]
--- NOTE | 2019-02-28 11:57 | EKG ---
Test Reason : DIZZINESS Blood Pressure : / mmHG Vent. Rate : 071 BPM Atrial Rate : 071 BPM P-R Int : 168 ms QRS Dur : 080 ms QT Int : 428 ms P-R-T Axes : 049 -53 051 degrees QTc Int : 465 ms Normal sinus rhythm Low voltage QRS Left anterior fascicular block Cannot rule out Inferior infarct (masked by fascicular block?) , age undetermined Abnormal ECG Confirmed by SONALI IRIZARRY D.O. ([id number]), makeup editor KATIA YANG ([id number]) on 02/28/2019 11:57:09 AM Referred By: CECELIA IRIZARRY Confirmed By:SONALI IRIZARRY D.O.
--- NOTE | 2019-02-28 11:57 | EKG ---
Test Reason : Blood Pressure : / mmHG Vent. Rate : 073 BPM Atrial Rate : 073 BPM P-R Int : 182 ms QRS Dur : 080 ms QT Int : 456 ms P-R-T Axes : 010 113 062 degrees QTc Int : 502 ms Normal sinus rhythm Low voltage QRS Left posterior fascicular block Nonspecific T wave abnormality Abnormal ECG Confirmed by SONALI IRIZARRY D.O. ([id number]), editor magazine KATIA YANG ([id number]) on 02/28/2019 11:57:16 AM Referred By: Confirmed By:SONALI IRIZARRY D.O.
== END 2019-02-25 12:09 | disposition home or self-care (01) | DRG 690 ==
LOC: ERS 22:41 → 2NO 02-22 02:58
PROVIDERS: ADMIT Internal Medicine; ATTEND Internal Medicine
DX: N39.0 Urinary tract infection, site not specified (principal); M19.90 Unspecified osteoarthritis, unspecified site; F03.90 Unspecified dementia, unspecified severity, without behavioral disturbance, psychotic disturbance, mood disturbance, and anxiety; I48.2 Chronic atrial fibrillation; Z90.710 Acquired absence of both cervix and uterus; Z90.49 Acquired absence of other specified parts of digestive tract; Z91.013 Allergy to seafood
CPT/HCPCS: 36415; 36416; 51701; 70450; 70551; 71045; 80048; 80053; 81003; 81015; 82550; 83630; 84443; 84484; 85025; 85610; 85730; 87077; 87086; 87186; 87324; 87449; 93005; 93306; 93880; 94760; 96361; 96365; A4353; J0696; J1630; J3486; J3490; J8597

== ENCOUNTER 2019-02-25 21:40 | Emergency (ER) | payer MEDICARE, BC ==
[2019-02-25 22:26] LABS: #Basophils 0.1 thou/uL (0.0-0.2); #Eosinphils 0.2 thou/uL (0.0-0.7); #Monocytes 0.7 thou/uL (0.11-0.59); #Neutrophils 4.6 thou/uL (1.40-6.50); %Basophils 0.8 % (0.0-1.0); %Eosinophils 2.8 % (0.0-10.0); %Lymphocytes 26.7 % (21.0-51.0); %Monocytes 9.1 % (0.0-10.0); %Neutrophils 60.6 % (42.0-75.0); Hemoglobin 15.5 g/dL (12.0-16.0); Mean Corpuscular HGB CONC 32.8 g/dL (32.0-36.0); Mean Corpuscular Hemoglobin 31.9 pg (27.0-31.0); Mean Corpuscular Volume 97.4 fL (78.0-98.0); Mean Platelet Volume 6.8 fL (7.4-10.4); Platelet Count 282 thou/uL (130-400); RBC Distribution Width 12.3 % (11.5-14.5); Red Blood Cell (RBC) Count 4.85 mill/uL (4.20-5.40); White Blood Cell (WBC) Count 7.6 thou/uL (4.8-10.8)
[2019-02-25 22:39] LABS: Bacteria/HPF 1+ HPF (None Seen); Bilirubin Negative (Negative); Blood, Urine Trace (Negative); Clarity Clear (Clear); Glucose, Urine (Dipstick) Normal (Negative); Leukocyte Negative Leu/uL (Negative); Nitrite Negative (Negative); Protein, Urine (Dipstick) Negative (Neg-Trace); RBC/HPF 0-3 HPF (0-3); Squamous Epithelial 0-3 HPF (0-3); Urobilinogen Normal mg/dL (Less than 2); WBC/HPF None Seen HPF (0-3)
[2019-02-25 22:48] LABS: ALT (SGPT) 21 U/L (8-55); AST (SGOT) 18 U/L (5-34); Albumin 3.9 g/dL (3.4-4.8); Alkaline Phosphatase 62 U/L (40-150); Anion Gap 15 mmol/L (10-20); BUN (Urea Nitrogen) 19 mg/dL (9.8-20.1); Bilirubin, Total 0.3 mg/dL (0.2-1.2); Calc. Creatinine Clearance 0 mL/min (70-130); Calcium 9.3 mg/dL (7.8-10.44); Carbon Dioxide 20 mmol/L (23-31); Chloride 109 mmol/L (98-107); Estimated GFR-MDRD 65; Globulin 2.9 g/dL (2.4-3.5); Glucose 101 mg/dL (80-115); Lipase 60 U/L (8-78); Potassium 4.1 mmol/L (3.5-5.1); Protein, Total 6.8 g/dL (6.0-8.3); Sodium 140 mmol/L (136-145)
--- NOTE | 2019-02-28 13:30 | EKG ---
Test Reason : Blood Pressure : / mmHG Vent. Rate : 075 BPM Atrial Rate : 077 BPM P-R Int : 000 ms QRS Dur : 074 ms QT Int : 396 ms P-R-T Axes : 000 -48 011 degrees QTc Int : 442 ms Undetermined rhythm Left axis deviation Low voltage QRS Inferior infarct , age undetermined Possible Anterolateral infarct , age undetermined Abnormal ECG Confirmed by CEDRICK TAVARES DO ([id number]), editorial writer KATIA YANG ([id number]) on 02/28/2019 1:30:13 PM Referred By: Confirmed By:CEDRICK TAVARES DO
== END 2019-02-25 23:36 | disposition home or self-care (01) ==
LOC: ERS 21:40
DX: R41.82 Altered mental status, unspecified (principal); G30.9 Alzheimer's disease, unspecified; M19.90 Unspecified osteoarthritis, unspecified site; Z79.01 Long term (current) use of anticoagulants; Z79.899 Other long term (current) drug therapy
CPT/HCPCS: 81003; 81015; 83690; 93005

== ENCOUNTER 2019-03-01 12:33 | Emergency (ER) | payer MEDICARE, BC ==
[2019-03-01 13:17] LABS: Bilirubin Negative (Negative); Blood, Urine Negative (Negative); Clarity Clear (Clear); Glucose, Urine (Dipstick) Negative (Negative); Leukocyte Negative (Negative); Nitrite Negative (Negative); Protein, Urine (Dipstick) Negative (Neg-Trace); Urobilinogen 0.2 mg/dL (Less than 2)
--- NOTE | 2019-03-01 13:40 | CT ---
CT Brain WO Con: 03/01/2019 12:57 PM CLINICAL HISTORY: Syncope and dizziness. Patient had a fall today. IMAGING TECHNIQUE: Multiple CT images were obtained of the brain without IV contrast. COMPARISON: CT the brain dated February 22, 2019 FINDINGS: Infarct: No acute infarct evident. Hemorrhage: None.. Hydrocephalus: None.. Basal cisterns: Normal.. Cerebral parenchyma: Normal.. Midline shift: None.. Cerebellum: Normal. Brainstem: Normal. OTHER: Calvarium: Intact.. Visualized Paranasal sinuses: Clear.. Extracranial soft tissues:Normal. IMPRESSION: No acute intracranial abnormality.
--- NOTE | 2019-03-01 13:41 | RAD ---
Portable chest: HISTORY: Syncope COMPARISON: none FINDINGS: Lung shah are clear. Heart and mediastinum appear unremarkable. Vascularity is normal. Visualized osseous structures unremarkable. IMPRESSION: No acute finding
[2019-03-01] MEDS ORDERED: Acetaminophen 500 MG TAB ONE (13:56)
[2019-03-01 14:12] LABS: #Basophils 0.1 thou/uL (0.0-0.2); #Eosinphils 0.3 thou/uL (0.0-0.7); #Lymphocytes 1.9 thou/uL (1.20-3.40); #Monocytes 0.7 thou/uL (0.11-0.59); #Neutrophils 4.6 thou/uL (1.40-6.50); %Basophils 1.5 % (0.0-1.0); %Eosinophils 3.3 % (0.0-10.0); %Lymphocytes 25.1 % (21.0-51.0); %Monocytes 8.8 % (0.0-10.0); %Neutrophils 61.4 % (42.0-75.0); Hemoglobin 14.6 g/dL (12.0-16.0); Mean Corpuscular HGB CONC 33.4 g/dL (32.0-36.0); Mean Corpuscular Hemoglobin 32.3 pg (27.0-31.0); Mean Corpuscular Volume 96.7 fL (78.0-98.0); Platelet Count 277 thou/uL (130-400); RBC Distribution Width 12.3 % (11.5-14.5); Red Blood Cell (RBC) Count 4.53 mill/uL (4.20-5.40); White Blood Cell (WBC) Count 7.6 thou/uL (4.8-10.8)
[2019-03-01 14:30] LABS: ALT (SGPT) 19 U/L (8-55); AST (SGOT) 16 U/L (5-34); Acetaminophen Less than 6.0 mcg/mL (10.0-30.0); Albumin 3.8 g/dL (3.4-4.8); Alcohol Less than 10 mg/dL (Less than 10); Alkaline Phosphatase 56 U/L (40-150); Anion Gap 15 mmol/L (10-20); BUN (Urea Nitrogen) 10 mg/dL (9.8-20.1); Bilirubin, Total 0.2 mg/dL (0.2-1.2); CK (CPK) 51 U/L (29-168); Calc. Creatinine Clearance 0 mL/min (70-130); Calcium 9.1 mg/dL (7.8-10.44); Carbon Dioxide 24 mmol/L (23-31); Chloride 106 mmol/L (98-107); Estimated GFR-MDRD 67; Globulin 2.9 g/dL (2.4-3.5); Glucose 94 mg/dL (80-115); Potassium 3.9 mmol/L (3.5-5.1); Protein, Total 6.7 g/dL (6.0-8.3); Salicylate Less than 8.0 mg/dL (15.0-30.0); Sodium 141 mmol/L (136-145)
[2019-03-01 14:37] LABS: Amphetamine Not Detected (NotDetected); Barbiturates Screen Not Detected (NotDetected); Benzodiazepine Screen Detected (NotDetected); Cocaine Metabolite Screen Not Detected (NotDetected); Medtox Control Line Valid? VALID (VALID); Methadone Not Detected (NotDetected); Methamphetamine Not Detected (NotDetected); Opiate Screen Not Detected (NotDetected); Oxycodone Screen Not Detected (NotDetected); Phencyclidine (PCP) Not Detected (NotDetected); THC/Cannabinoid Screen Not Detected (NotDetected); Tricyclic Screen Not Detected (NotDetected)
--- NOTE | 2019-03-04 15:05 | EKG ---
Test Reason : Blood Pressure : / mmHG Vent. Rate : 066 BPM Atrial Rate : 066 BPM P-R Int : 150 ms QRS Dur : 082 ms QT Int : 444 ms P-R-T Axes : 023 -55 021 degrees QTc Int : 465 ms Normal sinus rhythm Low voltage QRS Left anterior fascicular block Cannot rule out Inferior infarct (masked by fascicular block?) , age undetermined Cannot rule out Anterior infarct , age undetermined Abnormal ECG Confirmed by MINNIE CALLEJAS ([id number]), newspaper or periodical editor STEVE RAMOS ([id number]) on 03/04/2019 3:04:46 PM Referred By: Confirmed By:MINNIE CALLEJAS
== END 2019-03-01 15:01 | disposition home or self-care (01) ==
LOC: SCSER 12:33
DX: R42 Dizziness and giddiness (principal); R51 Headache; M19.90 Unspecified osteoarthritis, unspecified site; I48.91 Unspecified atrial fibrillation; G30.9 Alzheimer's disease, unspecified; F02.80 Dementia in other diseases classified elsewhere, unspecified severity, without behavioral disturbance, psychotic disturbance, mood disturbance, and anxiety; F32.9 Major depressive disorder, single episode, unspecified; F41.9 Anxiety disorder, unspecified; Z79.01 Long term (current) use of anticoagulants; Z79.899 Other long term (current) drug therapy
CPT/HCPCS: 36415; 70450; 71045; 80053; 80306; 80307; 81003; 82550; 84484; 85025; 93005; A4353

== ENCOUNTER 2019-04-21 13:24 | Outpatient (CLI) | payer MEDICARE, BC ==
--- NOTE | 2019-04-21 16:39 | MMO ---
Bilateral MAMMO Bilat Screen [facility]. CLINICAL HISTORY: Patient is 69 years old and is seen for screening. The patient has no family history of breast cancer. The patient has no personal history of cancer. VIEWS: The views performed were: bilateral craniocaudal with tomosynthesis and bilateral mediolateral oblique with tomosynthesis. FILMS COMPARED: The present examination has been compared to prior imaging studies performed at [facility] on 03/11/2014, 01/18/2016 and 04/18/2018, and at [facility] on 12/11/2012. MAMMOGRAM FINDINGS: There are scattered fibroglandular densities. There are stable benign appearing calcifications seen in both breasts. There are no suspicious masses, suspicious calcifications, or new areas of architectural distortion. IMPRESSION: THERE IS NO MAMMOGRAPHIC EVIDENCE OF MALIGNANCY. A ROUTINE FOLLOW-UP MAMMOGRAM IN 1 YEAR IS RECOMMENDED. THE RESULTS OF THIS EXAM WERE SENT TO THE PATIENT. ACR BI-RADS Category 2 - Benign finding MAMMOGRAPHY NOTE: 1. A negative mammogram report should not delay a biopsy if a dominant of clinically suspicious mass is present. 2. Approximately 10% to 15% of breast cancers are not detected by mammography. 3. Adenosis and dense breasts may obscure an underlying neoplasm. Reported by: SENAIT GRACE MD Electonically Signed: [id number]
== END 2019-04-21 13:25 | disposition home or self-care (01) ==
LOC: BICMAMMO 13:24
PROVIDERS: ATTEND Family Medicine
DX: Z12.31 Encounter for screening mammogram for malignant neoplasm of breast (principal)
CPT/HCPCS: 77063; 77067

== ENCOUNTER 2019-06-06 13:50 | Emergency (ER) | payer MEDICARE, BC ==
[2019-06-06] MEDS ORDERED: HYDROcodone/Acetaminophen 10/325 mg Tablet ONE (14:05)
--- NOTE | 2019-06-06 14:51 | RAD ---
RADIOGRAPH CHEST AND RIGHT RIBS 3 VIEW: DATE: 06/06/2019 HISTORY: 69-year-old female with acute traumatic right chest wall pain due to fall. FINDINGS: The thoracic aorta is tortuous and ectatic. There is no evidence of airspace density, pulmonary edema , or pneumothorax. The lateral costophrenic angles are not effaced. No cardiomegaly. No displaced right rib fracture identified. IMPRESSION: 1) No acute pulmonary findings. 2) ectasia of thoracic aorta. 3) no acute right rib fracture identified.
== END 2019-06-06 15:10 | disposition home or self-care (01) ==
LOC: SCSER 13:50
DX: S20.211A Contusion of right front wall of thorax, initial encounter (principal); Z79.899 Other long term (current) drug therapy; W01.0XXA Fall on same level from slipping, tripping and stumbling without subsequent striking against object, initial encounter

== ENCOUNTER 2021-06-01 09:49 | Outpatient (CLI) | payer MEDICARE, BC | END 2021-06-01 09:50 | disposition home or self-care (01) | LOC: TBSIIMAG 09:49 | PROVIDERS: ATTEND Neurological Surgery | DX: S22.080D Wedge compression fracture of T11-T12 vertebra, subsequent encounter for fracture with routine healing (principal) | CPT/HCPCS: 72072 ==